=== PATIENT | male | born 1975 | race Hispanic/Latino ===

== ENCOUNTER 2020-01-11 10:13 | Emergency (ER) | payer OTHER ==
[~2020-01-11 10:13] MED LIST: Iopamidol-370 76% 500 ML 1 ML ONE
--- NOTE | 2020-01-11 10:55 | RAD ---
Chest one view HISTORY: Weakness. Dyspnea. FINDINGS: No comparison. Cardiac silhouette is magnified by projection. Pulmonary vasculature is unre markable. Mediastinum is midline with aortic calcification. There are subtle areas of ill-defined reticulonodular parenchymal opacity involving each lung. No lobar consolidation or evidence of pneumothorax. IMPRESSION : Multifocal ill-defined parenchymal opacity. Clinical correlation regarding other signs and symptoms o f atypical pneumonitis is required.
[2020-01-11] MEDS ORDERED: Ketorolac Tromethamine 30 MG/ML VIAL ONE (10:58)
[2020-01-11] MEDS ORDERED: Dexamethasone 10 MG/ML VIAL ONE (10:58)
[2020-01-11] MEDS ORDERED: Metoclopramide HCl 10 MG/2 ML VIAL ONE (10:58)
[2020-01-11 11:20] LABS: ALT (SGPT) 13 U/L (8-55); AST (SGOT) 15 U/L (5-34); Albumin 4.2 g/dL (3.5-5.0); Alkaline Phosphatase 114 U/L (40-110); Anion Gap 23 mmol/L (10-20); BUN (Urea Nitrogen) 16 mg/dL (8.9-20.6); Bilirubin, Total 0.6 mg/dL (0.2-1.2); CK (CPK) 119 U/L (30-200); Calc. Creatinine Clearance 0 mL/min (70-130); Calcium 8.3 mg/dL (7.8-10.44); Carbon Dioxide 12 mmol/L (22-29); Chloride 101 mmol/L (98-107); Estimated GFR-MDRD 64; Globulin 3.2 g/dL (2.4-3.5); Glucose 350 mg/dL (70-105); Potassium 4.9 mmol/L (3.5-5.1); Protein, Total 7.4 g/dL (6.0-8.3); Sodium 131 mmol/L (136-145)
[2020-01-11 11:40] LABS: #Lymphocytes 0.6 thou/uL (1.20-3.40); #Monocytes 0.3 thou/uL (0.11-0.59); #Neutrophils 2.7 thou/uL (1.40-6.50); %Eosinophils 0.3 % (0.0-10.0); %Lymphocytes 16.9 % (21.0-51.0); %Monocytes 8.2 % (0.0-10.0); %Neutrophils 74.7 % (42.0-75.0); Hemoglobin 15.9 g/dL (14.0-18.0); Mean Corpuscular HGB CONC 32.6 g/dL (32.0-36.0); Mean Corpuscular Hemoglobin 26.1 pg (27.0-31.0); Mean Corpuscular Volume 79.9 fL (78.0-98.0); Mean Platelet Volume 9.3 fL (7.4-10.4); Platelet Count 136 thou/uL (130-400); RBC Distribution Width 13.9 % (11.5-14.5); White Blood Cell (WBC) Count 3.6 thou/uL (4.8-10.8)
[2020-01-11] MEDS ORDERED: cefTRIAXone\\ROCEPHIN 2 GM VIAL ONE (12:40)
--- NOTE | 2020-01-11 12:40 | CT ---
CT PULMONARY ANGIOGRAM: DATE: 01/11/2020. PROVIDED CLINICAL HISTORY: Dyspnea. FINDINGS: The heart, pericardium, and great vessels demonstrate a normal CT appearance. There is no evidence f or a central or segmental pulmonary embolus. No evidence for thoracic lymph node enlargement. There are multiple patchy bilateral peripheral foci of primary consolidation and to a lesser extent i solated ground-glass opacity. No pulmonary nodules or lobar consolidation evident. No evidence for pleural fluid or pneumothorax. The airway appears patent and of normal caliber. The visualized portions of the upper abdomen appear unremarkable. IMPRESSION: 1. No evidence for central or segmental pulmonary embolus. 2. Bilateral pneumonia in a distribution typical for viral pneumonitis. Findings communicated to Dr. Mims 11:47 a.m. 01/11/2020. CODE CR POS: MANA
[2020-01-11] MEDS ORDERED: Bacitracin 1 PK ONE (12:58)
== END 2020-01-11 13:25 | disposition home or self-care (01) ==
LOC: ERS 10:13
DX: J18.9 Pneumonia, unspecified organism (principal)
CPT/HCPCS: 36415; 71045; 71275; 80053; 82550; 83605; 84484; 85025; 87040; 96365; 96367; 96375; J0696; J1100; J1885; J2765; Q9967; U0001

== ENCOUNTER 2020-01-15 15:03 | Emergency (ER) | payer OTHER, SELFPAY | END 2020-01-15 16:00 | disposition home or self-care (01) | LOC: ERS 15:03 | DX: U07.1 COVID-19 (principal); R05 Cough; Z87.891 Personal history of nicotine dependence | CPT/HCPCS: 99284 ==